=== PATIENT | female | born 1950 | race Caucasian/White ===

== ENCOUNTER 2021-12-25 13:23 | Outpatient (CLI) | payer MEDICARE | END 2021-12-25 13:24 | disposition home or self-care (01) | LOC: CSHCT 13:23 | PROVIDERS: ATTEND Family Medicine | DX: Z12.2 Encounter for screening for malignant neoplasm of respiratory organs (principal); F17.210 Nicotine dependence, cigarettes, uncomplicated; R16.0 Hepatomegaly, not elsewhere classified | CPT/HCPCS: 71271 ==

== ENCOUNTER 2021-12-25 15:00 | Outpatient (CLI) | payer MEDICARE | END 2021-12-25 15:01 | disposition home or self-care (01) | LOC: CSHMAMMO 15:00 | PROVIDERS: ATTEND Family Medicine | DX: Z12.31 Encounter for screening mammogram for malignant neoplasm of breast (principal) | CPT/HCPCS: 77063; 77067 ==

== ENCOUNTER 2022-01-15 09:45 | Outpatient (CLI) | payer MEDICARE | END 2022-01-15 09:46 | disposition home or self-care (01) | LOC: CSHCT 09:45 | PROVIDERS: ATTEND Family Medicine | DX: K76.89 Other specified diseases of liver (principal); R16.0 Hepatomegaly, not elsewhere classified; K57.30 Diverticulosis of large intestine without perforation or abscess without bleeding | CPT/HCPCS: 74178; 82565 ==

== ENCOUNTER 2023-03-03 11:39 | Outpatient (CLI) | payer MEDICARE | END 2023-03-03 11:40 | disposition home or self-care (01) | LOC: CSHRAD 11:39 | PROVIDERS: ATTEND Family Medicine | DX: M25.561 Pain in right knee (principal); M17.11 Unilateral primary osteoarthritis, right knee ==

== ENCOUNTER 2023-03-17 12:03 | Outpatient (CLI) | payer MEDICARE | END 2023-03-17 12:04 | disposition home or self-care (01) | LOC: CSHCT 12:03 | PROVIDERS: ATTEND Family Medicine | DX: Z12.2 Encounter for screening for malignant neoplasm of respiratory organs (principal); F17.210 Nicotine dependence, cigarettes, uncomplicated | CPT/HCPCS: 71271 ==

== ENCOUNTER 2023-03-17 13:09 | Outpatient (CLI) | payer MEDICARE | END 2023-03-17 13:10 | disposition home or self-care (01) | LOC: CSHMAMMO 13:09 | PROVIDERS: ATTEND Family Medicine | DX: Z12.31 Encounter for screening mammogram for malignant neoplasm of breast (principal); Z13.820 Encounter for screening for osteoporosis; M81.0 Age-related osteoporosis without current pathological fracture; M85.88 Other specified disorders of bone density and structure, other site; Z78.0 Asymptomatic menopausal state; Z12.2 Encounter for screening for malignant neoplasm of respiratory organs; F17.210 Nicotine dependence, cigarettes, uncomplicated | CPT/HCPCS: 71271; 77063; 77067; 77080 ==